=== PATIENT | male | born 1950 | race Caucasian/White ===

== ENCOUNTER 2017-04-20 11:51 | Emergency (ER) | payer OTHER ==
[~2017-04-20] VITALS: Ht 165.1 cm; Wt 63.0 kg
[~2017-04-20 11:51] MED LIST: ASPI-664 PO; ATOR20TA38 PO; CHLO25CA9 PO; NITR0.4T39 SL; TICA90TA PO
[2017-04-20 11:55] VITALS: Ht 165.1 cm; Wt 63.0 kg
--- NOTE | 2017-04-20 13:21 | ERD ---
ER Documentation Chief Complaint Chief Complaint Complains of abd x 7 days HPI 67-year-old male, with history of inferior ND 1 year ago, presents to the emergency department complaining of 1 week with epigastric and retrosternal burning sensation. The pain is constant, 4/10. Remains unchanged with exertion. The patient denies pressure-like chest pain, palpitations, shortness of breath. Refers good compliance with medication, no side effects. Denies fevers, chills, diarrhea, blood in the stools. ROS A 12-point review of systems was performed and negative other than presented in the history of present illness. SYSTEMIC symptoms: no fever, chills, no night sweats, no weight loss EYE symptoms: No blurred vision, no eye discharge OTOLARYNGEAL symptoms: No hearing loss. No ear pain, no sore throat CARDIOVASCULAR symptoms: No chest pain or discomfort, no palpitations. PULMONARY symptoms: No dyspnea, no cough, no wheezing. GASTROINTESTINAL symptoms: Burning epigastric pain but no nausea, no vomiting , no diarrhea MUSCULOSKELETAL symptoms: No arthralgias, no muscle aches. NEUROLOGY symptoms: No confusion, no syncope, no numbness or tingling. SKIN: No rashes Medications Home Meds Active Scripts Acetaminophen* (Tylenol*) 325 Mg Tablet, 1 TAB PO Q6 Y for PAIN AND OR ELEVATED TEMP, #20 TAB Prov:AURELIO GARNETT MD 04/20/17 Ranitidine Hcl* (Zantac*) 150 Mg Tablet, 150 MG PO BID Y for EPIGASTRIC PAIN, # 30 TAB Prov:AURELIO GARNETT MD 04/20/17 Ticagrelor* (Brilinta*) 90 Mg Tablet, 90 MG PO BID, #60 TAB Prov:FREDA ANDREWS MD 08/24/15 Nitroglycerin* (Nitrostat*) 25 Tab Subl, 1 TAB SL Q5M Y for CHEST PAIN, #30 TAB Prov:FREDA ANDREWS MD 08/24/15 Chlordiazepoxide* (Chlordiazepoxide*) 25 Mg Cap, 25 MG PO TID, #15 CAP Prov:FREDA ANDREWS MD 08/24/15 Atorvastatin Calcium* (Atorvastatin Calcium*) 20 Mg Tab, 40 MG PO DAILY@21, #30 TAB 5 Refills Prov:FREDA ANDREWS MD 08/24/15 Aspirin* (Aspirin* EC) 81 Mg Tabec, 81 MG PO DAILY, #30 TAB 5 Refills Prov:FREDA ANDREWS MD 08/24/15 Allergies Allergies: Coded Allergies: No Known Allergy (Unverified , 08/23/15) PMhx/Soc History of Surgery: No Anesthesia Reaction: No Hx Neurological Disorder: No Hx Respiratory Disorders: No Hx Cardiac Disorders: No Hx Psychiatric Problems: No Hx Miscellaneous Medical Probl: No Hx Alcohol Use: Yes Hx Substance Use: No Hx Tobacco Use: Yes Smoking Status: Current every day smoker Physical Exam Vitals Vital Signs Date Time Temp Pulse Resp B/P Pulse Ox O2 Delivery O2 Flow Rate FiO2 04/20/17 11:55 98.0 86 20 151/91 93 Physical Exam Patient is in no acute distress, vital signs stable. Alert and fully oriented. EYES: PERRLA, EOMI, Sclera and conjunctiva appear normal. EARS: Canals clear, tympanic membranes WNL THROAT: Normal oropharynx. NECK: Supple, No lymphadenopathy. Full ROM without pain or tenderness. HEART: RRR, no rubs, murmurs, clicks or gallops. LUNGS: Clear to auscultation. ABDOMEN: Soft, non-tender without masses or hepatosplenomegaly. EXTREMITIES: No edema bilaterally. BACK: Full ROM, no deformity, normal back exam NEURO: Cranial nerves grossly intact, no motor or sensory deficit Procedures/MDM 67-year-old male, with history of inferior ND 1 year ago, presents to the emergency department complaining of 1 week with retrosternal burning sensation associated with mild dizziness. Vital signs stable, Physical exam unremarkable. Differential diagnosis include but not limited to: angina, GERD, gastroenteritis , kidney stones, irritable bowel syndrome, inflammatory bowel syndrome, malabsorption syndrome, cholelithiasis, food intolerance, medication side effect , pancreatitis, diverticulitis, bowel obstruction. Low suspicion for acute coronary event. Pertinent Data: 12 Lead ECG: Sinus rhythm, no acute ST changes, normal T wave, normal intervals , Q waves in inf leads. Physical examination and clinical presentation consistent most likely with GERD. During the ED course the patient remained stable, no new complaints. Results and clinical impression discussed with patient who agrees with management. The patient is stable to be treated outpatient and will be discharged home with a Rx for Ranitidine and tylenol, some side effects of prescribed medications (headache, rash, nausea, vomiting, diarrhea, drowsiness, habituation, bleeding, hypertension, interactions with other medications) were reviewed. The patient was instructed to follow up with the primary care provider in the next 48h. If symptoms persist, worsen or new symptoms develop, then patient should return to the ED immediately. Instructions explained and given directly by me to the patient in [place] with acknowledgment and demonstrated understanding. Disclaimer: Inadvertent spelling and grammatical errors are likely due to EHR/ dictation software use and do not reflect on the overall quality of patient care. Also, please note that the electronic time recorded on this note does not necessarily reflect the actual time of the patient encounter. Departure Diagnosis: Primary Impression: GERD (gastroesophageal reflux disease) Additional Impression: History of ND (myocardial infarction) Condition: Stable Additional Instructions: Call your primary care doctor TOMORROW for an appointment during the next 1-2 days. See the doctor sooner or return here if your condition worsens before your appointment time. Thank you very much for allowing us to participate in your care. Your health and safety is our top priority at [facility]. Have prescriptions filled and follow precisely the directions on the label. Follow-up with primary care provider during the next 4 days and bring all the information and medications prescribed. If illness has not improved in 2 days, then make an appointment with primary care provider. If the provider is unavailable, return to the Emergency Department immediately. AURELIO GARNETT MD Apr 20, 2017 13:21
[2017-04-20] MEDS ORDERED: ACET325T33 PO (13:53)
[2017-04-20] MEDS ORDERED: RANI150T9 PO (13:53)
== END 2017-04-20 14:10 | disposition home or self-care (01) ==
LOC: FTE 11:51
DX: K21.9 Gastro-esophageal reflux disease without esophagitis (principal); F17.210 Nicotine dependence, cigarettes, uncomplicated; Z86.79 Personal history of other diseases of the circulatory system; Z79.82 Long term (current) use of aspirin
CPT/HCPCS: 93005; Z7502

== ENCOUNTER 2017-06-03 09:30 | Inpatient (IN) | END 2017-06-06 14:34 | disposition home or self-care (01) | DRG 247 ==

== ENCOUNTER 2018-09-14 06:56 | Emergency (ER) | payer SELFPAY ==
[~2018-09-14] VITALS: Ht 162.6 cm; Wt 65.2 kg
[~2018-09-14 06:56] MED LIST changes: +ACET325T33 PO; -ASPI-664 PO; +ASPI-817 PO; +ATOR-2 PO; -ATOR20TA38 PO; -CHLO25CA9 PO; +CIPR-193 PO; +FOLI-49 PO; +MULTI PO; +RANI150T35 PO; +THIA100T56 PO
[2018-09-14 07:00] VITALS: Ht 162.6 cm; Wt 65.2 kg
[2018-09-14] MEDS ORDERED: ONDANSETRON INJ 8 MG in DEXTROSE 5% 50 ML IV STA (07:07)
[2018-09-14] MEDS ORDERED: morphine 4 MG/ML VIAL IV STA (07:07)
[2018-09-14] MEDS ORDERED: FAMOTIDINE 20 MG INJ IV STA (07:07)
[2018-09-14] MEDS ORDERED: SOD CHLORIDE 0.9% 1,000 ML IV STA (07:07)
[2018-09-14] MEDS ORDERED: PANTOPRAZOLE IV 80 MG in SOD CHLORIDE 0.9% 100 ML IVPB STA (07:14)
--- NOTE | 2018-09-14 07:18 | ERD ---
ER Documentation Chief Complaint Chief Complaint mid abdominal pain x 5 days with nausea worse today HPI This is a 68-year-old male that has a known history of coronary artery disease status post left heart catheterization in May 2017. The patient at that time had a drug-eluting stent that was placed. He is currently on Brilinta. The patient has a history of alcohol abuse who indicates his last consumption of alcohol was over 5 days ago. The patient denies any history of alcohol withdrawal seizures. The patient complains of abdominal pain that is been intermittent for the past 5 days. Indicates the pain began in the epigastric region now radiates to the right lower quadrant. Indicates he awoke this morning with severe nausea and had multiple episodes of nonbloody nonbilious emesis. There is been no alleviating or exacerbating factors to the abdominal pain. Indicates he has not experienced any similar abdominal pain in the past. He denies any hemoptysis no hematemesis and no melanotic stools. No fevers no shaking no chills. No recent or remote blunt or penetrating abdominal wall trauma. The patient denies any chest pain. He states his been compliant with his medications. ROS All systems reviewed and are negative except as per history of present illness. Medications Home Meds Active Scripts Ciprofloxacin Hcl* (Ciprofloxacin Hcl*) 250 Mg Tablet, 250 MG PO BID for 5 Days, #10 TAB Prov:KUSH SILVA MD 06/06/17 Thiamine* (Vitamin B-1*) 100 Mg Tablet, 100 MG PO DAILY for 30 Days, #30 TAB Prov:KUSH SILVA MD 06/06/17 Multivitamins* (Theragran*) 1 Tab Tab, 1 TAB PO DAILY for 30 Days, #30 TAB Prov:KUSH SILVA MD 06/06/17 Folic Acid* (Folic Acid*) 1 Mg Tablet, 1 MG PO DAILY for 30 Days, #30 TAB Prov:KUSH SILVA MD 06/06/17 Atorvastatin* (Atorvastatin*) 80 Mg Tablet, 80 MG PO HS for 30 Days, #30 TAB Prov:KUSH SILVA MD 06/06/17 Acetaminophen* (Tylenol*) 325 Mg Tablet, 1 TAB PO Q6 PRN for PAIN AND OR ELEVATED TEMP, #20 TAB Prov:AURELIO GARNETT MD 04/20/17 Ranitidine Hcl* (Zantac*) 150 Mg Tablet, 150 MG PO BID PRN for EPIGASTRIC PAIN, #30 TAB Prov:AURELIO GARNETT MD 04/20/17 Ticagrelor* (Brilinta*) 90 Mg Tablet, 90 MG PO BID, #60 TAB Prov:FREDA ANDREWS MD 08/24/15 Nitroglycerin* (Nitrostat*) 25 Tab Subl, 1 TAB SL Q5M PRN for CHEST PAIN, #30 TAB Prov:FREDA ANDREWS MD 08/24/15 Aspirin* (Aspirin* EC) 81 Mg Tabec, 81 MG PO DAILY, #30 TAB 5 Refills Prov:FREDA ANDREWS MD 08/24/15 Allergies Allergies: Coded Allergies: No Known Allergy (Unverified , 08/23/15) PMhx/Soc History of Surgery: No Anesthesia Reaction: No Hx Neurological Disorder: No Hx Respiratory Disorders: No Hx Cardiac Disorders: Yes (HTN, STENT ) Hx Psychiatric Problems: No Hx Miscellaneous Medical Probl: Yes (pls see EMR) Hx Substance Use: No Hx Tobacco Use: Yes Physical Exam Vitals Vital Signs Date Temp Pulse Resp B/P (MAP) Pulse Ox O2 O2 Flow FiO2 Time Delivery Rate 09/14/18 98.2 60 18 189/90 97 07:00 (123) Physical Exam Constitutional:Well-developed. Well-nourished. Patiently actively vomiting nonbloody nonbilious emesis. HEENT:Normocephalic. Atraumatic.Pupils were equal round reactive to light. Very dry mucous membranes.No tonsillar exudates. Poor oral dentition Neck: No nuchal rigidity. No lymphadenopathy. No posterior cervical spine tenderness or step-offs. Respiratory: Not using accessory muscles of respiration.Lungs were clear to auscultation bilaterally. No rhonchi. No rales. No wheezing. Cardiovascular: Regular rate regular rhythm.No murmurs. No rubs were appreciated.S1, S2 normal. Distal pulses are palpable 2+ bilaterally. GI: Abdomen was soft. Epigastric tenderness. Tenderness in the right lower quadrant nonspecific over McBurney's point. Psoas sign negative. Obturator sign negative. Non Distended. No pulsatile abdominal masses or bruits. No rebound. No guarding. Bowel sounds were present and normal. Muscle skeletal: Full range of motion of both the upper and lower extremities bilaterally.Normal muscle tone.No assymetrical calf tenderness or swelling. Skin: No petechia, no purpura. No lesions on the palms or the soles of the feet. No maculopapular rash. NEURO: Patient was alert, awake, orientated x3.No facial droop. Gait observed and normal with no ataxia.Speech had regular rate and rhythm. No focal neurological deficits. Result Diagram: 09/14/18 0720 09/14/18 0720 Results 24 hrs Laboratory Tests Test 09/14/18 07:17 09/14/18 07:20 Urine Color YELLOW Urine Clarity CLEAR Urine pH 7.0 Urine Specific [place] 1.036 Urine Ketones NEGATIVE mg/dL Urine Nitrite NEGATIVE mg/dL Urine Bilirubin NEGATIVE mg/dL Urine Urobilinogen NEGATIVE mg/dL Urine Leukocyte Esterase NEGATIVE [place]/ul Urine Hemoglobin NEGATIVE mg/dL Urine Glucose NEGATIVE mg/dL Urine Total Protein NEGATIVE mg/dl White Blood Count 14.6 10^3/ul Red Blood Count 4.81 10^6/ul Hemoglobin 14.7 g/dl Hematocrit 43.2 % Mean Corpuscular Volume 89.8 fl Mean Corpuscular Hemoglobin 30.6 pg Mean Corpuscular Hemoglobin Concent 34.0 g/dl Red Cell Distribution Width 13.0 % Platelet Count 294 10^3/UL Mean Platelet Volume 10.1 fl Immature Granulocytes % 0.300 % Neutrophils % 75.0 % Lymphocytes % 18.5 % Monocytes % 4.1 % Eosinophils % 1.7 % Basophils % 0.4 % Nucleated Red Blood Cells % 0.0 /100WBC Immature Granulocytes # 0.050 10^3/ul Neutrophils # 11.0 10^3/ul Lymphocytes # 2.7 10^3/ul Monocytes # 0.6 10^3/ul Eosinophils # 0.3 10^3/ul Basophils # 0.1 10^3/ul Nucleated Red Blood Cells # 0.0 10^3/ul Prothrombin Time 12.7 Sec Prothrombin Time Ratio 1.0 INR International Normalized Ratio 0.94 Activated Partial Thromboplast Time 30.1 Sec Sodium Level 139 mmol/L Potassium Level 4.6 mmol/L Chloride Level 107 mmol/L Carbon Dioxide Level 21 mmol/L Anion Gap 11 Blood Urea Nitrogen 15 mg/dl Creatinine 0.73 mg/dl Est Glomerular Filtrat Rate mL/min > 60 mL/min Glucose Level 143 mg/dl Calcium Level 9.9 mg/dl Total Bilirubin 0.3 mg/dl Direct Bilirubin 0.00 mg/dl Indirect Bilirubin 0.3 mg/dl Aspartate Amino Transf (AST/SGOT) 22 IU/L Alanine Aminotransferase (ALT/SGPT) 18 IU/L Alkaline Phosphatase 114 IU/L Ammonia < 9 umol/l Troponin I < 0.012 ng/ml Total Protein 7.7 g/dl Albumin 4.3 g/dl Globulin 3.40 g/dl Albumin/Globulin Ratio 1.26 Amylase Level 98 U/L Lipase 133 U/L Ethyl Alcohol Level < 10.0 mg/dl Current Medications Medications Dose Sig/Jenniffer Start Time Status Last (Trade) Ordered Route PRN Stop Time Admin Dose Reason Admin Sodium 1,000 ml @ Q1H STAT 09/14/18 DC 09/14/18 Chloride 1,000 mls/hr IV 07:07 09/14/18 07:39 08:06 Morphine 4 mg ONCE STAT 09/14/18 DC 09/14/18 Sulfate IV 07:07 09/14/18 07:39 (morphine) 07:11 Ondansetron 54 ml @ ONCE STAT 09/14/18 DC 09/14/18 HCl 8 200 mls/hr IV 07:07 09/14/18 07:39 mg/Dextrose 07:23 Famotidine 20 mg ONCE STAT 09/14/18 DC 09/14/18 (Pepcid Iv) IV 07:07 09/14/18 07:39 07:12 Pantoprazole 100 ml @ ONCE STAT 09/14/18 DC 09/14/18 80 mg/Sodium 400 mls/hr IVPB 07:14 09/14/18 07:56 Chloride 07:28 Ondansetron 4 mg STK-MED 09/14/18 DC HCl (Zofran ONCE .ROUTE 07:28 09/14/18 Inj) 07:29 Magnesium 1,015.2 ml Q2H2M STAT 09/14/18 DC 09/14/18 Sulfate 2 @ 500 mls/ IV 08:02 09/14/18 08:02 gm/ hr 10:36 Multivitamins 10 ml/Thiamine HCl 100 mg/Folic Acid 1 mg/Sodium Chloride IV Flush 10 ml STK-MED 09/14/18 DC (NS 10 ml) ONCE .ROUTE 08:18 09/14/18 08:19 Sodium 100 ml @ ud STK-MED 09/14/18 DC Chloride ONCE .ROUTE 08:18 09/14/18 08:19 Iohexol 150 ml STK-MED 09/14/18 DC (Omnipaque ONCE .ROUTE 08:18 09/14/18 300mg/ ml) 08:19 Procedures/MDM This patient presented to the emergency department with abdominal pain and was seen and evaluated by myself. My differential diagnosis included but was not limited to abdominal aortic aneurysm, appendicitis, pancreatitis, perforated peptic ulcer, perforated viscus, Boerhaave's syndrome or visceral pain such as diverticulitis, DKA, esophagitis, hepatitis or bowel obstruction. The patient was placed on a director of cardiac cath lab, continuous pulse oximetry, and IV access was established by nursing staff. The patient was immediately given IV fluid hydration with intravenous morphine Pepcid and was also given Protonix given that he has a history of alcohol abuse. The patient has had a previous ST segment myocardial infarction and therefore I did feel is necessary to obtain a 12-lead EKG tracing to rule out for atypical myocardial ischemia. 12 Lead EKG tracing ordered and reviewed by myself showed: Normal sinus rhythm of 72 bpm and no arrhythmia. HI interval normal. QRS duration normal. No ST segment elevation. Q waves present in inferior lead III and aVF. No ST segment depression. No changes consistent with acute ischemia. CT scan the abdomen reviewed by myself indicate the followin. Nonspecific mild intrahepatic biliary ductal dilation otherwise normal caliber of the common bile duct. Gallbladder is also unremarkable. 2. Suspect subcentimeter cyst in the tail of the pancreas. Based on white paper of the ACR incidental findings consider follow-up MRI with pancreatic protocol in 2 years. 3. Colonic diverticulosis. 4. Mildly ectatic infrarenal abdominal aorta measuring 2.5 cm with moderate calcified and noncalcified atherosclerotic plaque. 5. Moderate prostatomegaly. The patient has a history of alcoholism. Him serum ethanol was nondetected. He received a banana bag. He was also given Ativan. Observation Note: Time: 4 hours Family Hx: No Hypertension Evaluation: Multiple exams showed improving symptoms and no evidence of impe nding delirium tremors. The patient is now able to tolerate oral intake. He had been given a dose of Protonix. There is no signs of an upper or lower gastrointestinal bleed. Indicated to the patient this could be a result of mild alcohol withdrawal,, alcoholic gastritis versus a viral etiology. The patient's hemoglobin was within normal limits. Departure Diagnosis: Primary Impression: Vomiting Vomiting type: unspecified Vomiting Intractability: non-intractable Nausea presence: with nausea Qualified Codes: R11.2 - Nausea with vomiting, unspecified Additional Impression: Diverticulosis Condition: PEDRO Villeda MD September 14, 2018 07:18
[2018-09-14] MEDS ORDERED: ONDANSETRON 4 MG INJ ONE (07:28)
[2018-09-14] MEDS ORDERED: MAGNESIUM SULFATE 2 GM, MULTIVITAMINS 10 ML, THIAMINE 100 MG, FOLIC ACID 1 MG in SOD CH... IV STA (08:02)
[2018-09-14] MEDS ORDERED: SOD CHLORIDE 0.9% 100 ML ONE (08:18)
[2018-09-14] MEDS ORDERED: IOHEXOL 300MG/ML 150 ML BTL ONE (08:18)
[2018-09-14] MEDS ORDERED: ASPI-817 PO (11:24)
[2018-09-14] MEDS ORDERED: BELLADONNA/PHENOBARBITAL TAB PO STA (11:51)
[2018-09-14] MEDS ORDERED: ONDANSETRON 4 MG INJ IV STA (11:51)
[2018-09-14] MEDS ORDERED: LIDOCAINE/MYLANTA 40 ML BTL PO STA (11:51)
[2018-09-14] MEDS ORDERED: LORAZEPAM 2 MG INJ IV ONE (12:00)
[2018-09-14] MEDS ORDERED: ONDA4TAB14 PO (14:35)
[2018-09-14 14:46] VITALS: BP 161/74; PULSE 71; RESP 20
== END 2018-09-14 14:45 | disposition home or self-care (01) ==
LOC: E/R 06:56 → SUATTDRO 09:03 → E/R 14:45
PROVIDERS: ATTEND Family Medicine
DX: K57.30 Diverticulosis of large intestine without perforation or abscess without bleeding (principal); I25.10 Atherosclerotic heart disease of native coronary artery without angina pectoris; I10 Essential (primary) hypertension; Z79.82 Long term (current) use of aspirin; Z87.891 Personal history of nicotine dependence; Z98.61 Coronary angioplasty status
CPT/HCPCS: 74177; 80053; 80307; 81003; 82140; 82150; 83690; 84484; 85025; 85610; 85730; 87086; 93005; 96374; 96375; 99285; C9113; J2060; J2270; J2405; J3411; J3475; J7030; Q9967